=== PATIENT | female | born 1980 | race Caucasian/White ===

== ENCOUNTER 2018-05-27 09:47 | Outpatient (CLI) | END 2018-05-27 13:25 | disposition home or self-care (01) ==

== ENCOUNTER 2018-07-12 16:44 | Outpatient (CLI) | END 2018-07-12 17:50 | disposition home or self-care (01) ==

== ENCOUNTER 2018-09-02 10:12 | Outpatient (CLI) | END 2018-09-02 11:10 | disposition home or self-care (01) ==

== ENCOUNTER 2018-09-04 04:38 | Outpatient (CLI) | END 2018-09-04 06:00 | disposition home or self-care (01) ==

== ENCOUNTER 2018-09-07 12:45 | Inpatient (IN) | END 2018-09-12 23:32 | disposition home or self-care (01) | DRG 807 ==